=== PATIENT | female | born 1970 | race Caucasian/White ===

== ENCOUNTER 2024-03-22 16:26 | Outpatient (CLI) | payer BC, SELFPAY ==
[2024-03-22 17:18] LABS: #Basophils 0.04 10x3/uL (0.0-0.2); #Eosinphils 0.16 10x3/uL (0.0-0.5); #Monocytes 0.67 10x3/uL (0.0-1.1); #Neutrophils 5.98 10x3/uL (1.5-8.4); %Basophils 0.4 % (0.0-2.0); %Eosinophils 1.7 % (0.0-6.0); %Lymphocytes 28.2 % (18.0-47.0); Hematocrit 35.2 % (34.9-44.5); Hemoglobin 12.1 g/dL (12.0-15.5); Mean Corpuscular HGB CONC 34.4 g/dL (32.0-36.0); Mean Corpuscular Hemoglobin 28.5 pg (27.0-33.0); Mean Corpuscular Volume 82.8 fL (81.6-98.3); Mean Platelet Volume 9.7 fL (7.4-10.4); Platelet Count 258 10x3/uL (150-450); RBC Distribution Width 13.6 % (11.5-14.5); Red Blood Cell (RBC) Count 4.25 10x6/uL (3.90-5.03); White Blood Cell (WBC) Count 9.6 10x3/uL (3.5-10.5)
[2024-03-22 17:31] LABS: ALT (SGPT) 31 U/L (8-55); AST (SGOT) 26 U/L (5-34); Albumin 4.6 g/dL (3.5-5.0); Alkaline Phosphatase 79 U/L (40-110); Anion Gap 15 mmol/L (10-20); BUN (Urea Nitrogen) 29 mg/dL (9.8-20.1); Bilirubin, Total 0.3 mg/dL (0.2-1.2); Calc. Creatinine Clearance 0 mL/min (70-130); Calcium 9.8 mg/dL (7.8-10.44); Carbon Dioxide 22 mmol/L (22-29); Chloride 103 mmol/L (98-107); Estimated GFR 58; Globulin 2.6 g/dL (2.4-3.5); Glucose 108 mg/dL (70-105); Potassium 3.5 mmol/L (3.5-5.1); Protein, Total 7.2 g/dL (6.0-8.3); Sodium 136 mmol/L (136-145)
[2024-03-22 19:52] LABS: Hemoglobin A1c 6.7 % (4.0-6.0)
== END 2024-03-22 16:27 | disposition home or self-care (01) ==
LOC: LABBT 16:26
PROVIDERS: ATTEND Surgery
DX: Z01.818 Encounter for other preprocedural examination (principal)
CPT/HCPCS: 80053; 83036; 85025; 93005; 93010

== ENCOUNTER 2024-03-22 16:30 | Inpatient (IN) | payer BC, SELFPAY ==
[2024-03-22 16:36] VITALS: BMI 39.1
[2024-03-26] MEDS ORDERED: EPINEPHrine 1 MG/ML VIAL ONE (06:46)
[2024-03-26] MEDS ORDERED: Bupivacaine 0.25% HCL 30 ML VIAL ONE (06:46)
[2024-03-26] MEDS ORDERED: Lidocaine 1% PF 5 ML VIAL ONE (07:14)
[2024-03-26] MEDS ORDERED: Rocuronium Bromide 10 MG/ML (10ML VIAL) ONE (07:14)
[2024-03-26] MEDS ORDERED: Dexamethasone 4 mg/ml Vial ONE (07:14)
[2024-03-26] MEDS ORDERED: Ondansetron PF 4 MG/2 ML Vial ONE (07:14)
[2024-03-26] MEDS ORDERED: fentaNYL PF 100 MCG/2 ML SYRINGE ONE ×2 (07:14→09:08)
[2024-03-26] MEDS ORDERED: PROPOFOL 20 ML ONE (07:14)
[2024-03-26] MEDS ORDERED: CEFAZOLIN 2 GM VIAL ONE (07:23)
[2024-03-26] MEDS ORDERED: Sodium Chloride 0.9% 100 ML ONE (07:23)
[2024-03-26] MEDS ORDERED: Ketorolac Tromethamine 30 MG (1 mL) VIAL ONE (09:07)
[2024-03-26] MEDS ORDERED: SUGAMMADEX SODIUM 200 MG/2 ML VIAL ONE (09:15)
[2024-03-26] MEDS ORDERED: Ondansetron PF 4 MG/2 ML Vial IVP PRN ×2 (09:32→10:13)
[2024-03-26] MEDS ORDERED: Glucagon 1 MG/ML KIT IM PRN (09:32)
[2024-03-26] MEDS ORDERED: Dextrose 50% Abboject 50 ML SYRINGE SLOW IVP PRN (09:32)
[2024-03-26] MEDS ORDERED: Hydrocodone-Acetamin 15 ML UDCUP PO PRN (09:32)
[2024-03-26] MEDS ORDERED: diphenhydrAMINE 50 MG/ML VIAL IVP PRN ×2 (09:32→10:13)
[2024-03-26] MEDS ORDERED: hydrALAZINE 20 MG/ML VIAL SLOW IVP PRN (09:32)
[2024-03-26] MEDS ORDERED: Promethazine HCl 25 MG/ML VIAL IM PRN ×2 (09:32→10:13)
[2024-03-26] MEDS ORDERED: Dextrose 5% in Water 1,000 ML IV PRN (09:32)
[2024-03-26] MEDS ORDERED: Ipratropium/Albuterol 3 ML NEB NEB PRN (09:32)
[2024-03-26] MEDS ORDERED: fentaNYL 50 mcg/mL 1 mL Vial ONE ×3 (10:08→10:41)
[2024-03-26] MEDS ORDERED: Naloxone HCl 0.4 mg/ml Vial IV PRN (10:13)
[2024-03-26] MEDS ORDERED: diphenhydrAMINE 25 MG CAP PO PRN (10:13)
[2024-03-26] MEDS ORDERED: FENTANYL 500 MCG/10 ML VIAL 2,000 MCG in Sodium Chloride 0.9% 60 ML IV PRN (10:13)
[2024-03-26] MEDS ORDERED: diphenhydrAMINE 50 MG/ML VIAL IM PRN (10:13)
[2024-03-26] MEDS ORDERED: Communication Order-Pharmacy FS SCH (10:15)
[2024-03-26] MEDS ORDERED: D5 1/2 NS w/20 mEq KCL 1,000 ML ONE (11:50)
[2024-03-26] MEDS: D5 1/2 NS w/20 mEq KCL 1,000 ML IV SCH (13:56)
[2024-03-26] MEDS: Ketorolac Tromethamine 30 MG (1 mL) VIAL IVP SCH (15:31)
[2024-03-26] MEDS: CEFAZOLIN 2 GM in Sodium Chloride 0.9% 100 ML IVPB SCH (15:32)
[2024-03-27 05:15] LABS: #Basophils Less than 0.03 10x3/uL (0.0-0.2); %Basophils 0.1 % (0.0-1.0); %Lymphocytes 19.6 % (21.0-51.0); %Monocytes 10.4 % (0.0-10.0); %Neutrophils 68.5 % (42.0-75.0); Hematocrit 30.1 % (36.0-47.0); Hemoglobin 9.9 g/dL (12.0-16.0); Mean Corpuscular HGB CONC 32.9 g/dL (32.0-36.0); Mean Corpuscular Hemoglobin 28.5 pg (27.0-31.0); Mean Corpuscular Volume 86.7 fL (78.0-98.0); Mean Platelet Volume 9.8 fL (7.4-10.4); Platelet Count 204 10x3/uL (130-400); RBC Distribution Width 13.3 % (11.5-14.5); Red Blood Cell (RBC) Count 3.47 mill/uL (4.20-5.40)
[2024-03-27 05:33] LABS: Anion Gap 11 mmol/L (10-20); BUN (Urea Nitrogen) 13 mg/dL (9.8-20.1); Calc. Creatinine Clearance 114 mL/min (70-130); Calcium 8.3 mg/dL (7.8-10.44); Carbon Dioxide 23 mmol/L (22-29); Chloride 108 mmol/L (98-107); Estimated GFR 71; Glucose 118 mg/dL (70-105); Potassium 3.6 mmol/L (3.5-5.1); Sodium 138 mmol/L (136-145)
[2024-03-27] MEDS: Pantoprazole 40 MG VIAL IVP SCH (08:34)
[2024-03-27] MEDS: Enoxaparin 40 MG (0.4 mL) SYRINGE SC SCH (08:35)
[2024-03-27 09:13] VITALS: BP 109/72; TEMP 97.7
[2024-03-27] MEDS ORDERED: Hydrocodone-Acetamin 15 ML UDCUP PO PRN (10:22)
== END 2024-03-27 11:22 | disposition home or self-care (01) | DRG 621 ==
LOC: SURG A 03-26 05:52 → SURG B 03-26 12:27
PROVIDERS: ADMIT Surgery; ATTEND Surgery
PROC: 0D164ZA Bypass Stomach to Jejunum, Percutaneous Endoscopic Approach (ICD-10-PCS; principal; 2024-03-26)
PROC: 8E0W4CZ Robotic Assisted Procedure of Trunk Region, Percutaneous Endoscopic Approach (ICD-10-PCS; 2024-03-26)
PROC: 3E033XZ Introduction of Vasopressor into Peripheral Vein, Percutaneous Approach (ICD-10-PCS; 2024-03-26)
PROC: 5A09357 Assistance with Respiratory Ventilation, Less than 24 Consecutive Hours, Continuous Positive Airway Pressure (ICD-10-PCS; 2024-03-27)
DX: E66.01 Morbid (severe) obesity due to excess calories (principal); D64.9 Anemia, unspecified; F41.9 Anxiety disorder, unspecified; F32.A Depression, unspecified; I10 Essential (primary) hypertension; Z98.890 Other specified postprocedural states; Z90.49 Acquired absence of other specified parts of digestive tract; Z68.39 Body mass index [BMI] 39.0-39.9, adult; Z79.899 Other long term (current) drug therapy; Z82.49 Family history of ischemic heart disease and other diseases of the circulatory system; Z83.3 Family history of diabetes mellitus; Z88.8 Allergy status to other drugs, medicaments and biological substances
CPT/HCPCS: 36415; 80048; 85025; 94760; C9113; J0171; J0665; J1100; J1650; J1885; J2405; J2704; J3010; J3480; J3490

== ENCOUNTER 2024-03-30 10:19 | Day surgery (SDC) | payer OTHER ==
[2024-03-30 10:38] VITALS: BP 122/59; TEMP 97.5
[2024-03-30] MEDS: Sodium Chloride 0.9% 1,000 ML IV SCH (11:01)
[2024-03-30] MEDS: Multivitamins, Adult 10 ML, Thiamine HCl 100 MG in Sodium Chloride 0.9% 1,000 ML IV SCH (11:31)
[2024-03-30] MEDS ORDERED: Ondansetron PF 4 MG/2 ML Vial ONE (11:35)
[2024-03-30] MEDS: Ondansetron PF 4 MG/2 ML Vial IVP PRN (11:36)
== END 2024-03-30 13:29 | disposition home or self-care (01) ==
LOC: ONC/OP 10:19
PROVIDERS: ATTEND Surgery
DX: E86.0 Dehydration (principal); Z88.8 Allergy status to other drugs, medicaments and biological substances
CPT/HCPCS: 96360; 96361; J2405; J3411; J7050

== ENCOUNTER 2024-12-14 12:15 | Emergency (ER) | payer BC ==
[2024-12-14 13:01] LABS: Bilirubin Negative (Negative); Blood, Urine Negative (Negative); CAUTI Indications for Culture Pelvic or flank pain; Clarity Clear (Clear); Glucose, Urine (Dipstick) Normal (Negative); Ketone, Urine Negative (Negative); Leukocyte Negative Leu/uL (Negative); Nitrite Negative (Negative); Protein, Urine (Dipstick) Negative (Neg-Trace); RBC/HPF 0-3 HPF (0-3); Specific Gravity, Urine 1.029 (1.002-1.036); Squamous Epithelial 0-3 HPF (0-3); Urobilinogen Normal mg/dL (Less than 2); WBC/HPF 0-3 HPF (0-3); pH, Urine 5.5 (5.0-9.0)
[2024-12-14 13:02] LABS: Bacteria/HPF 1+ HPF (None Seen)
[2024-12-14 13:03] LABS: Urine Culture Reflex No No
[2024-12-14 14:05] LABS: #Basophils 0.03 10x3/uL (0.0-0.2); %Basophils 0.5 % (0.0-1.0); %Eosinophils 0.8 % (0.0-10.0); %Lymphocytes 33.3 % (21.0-51.0); %Monocytes 8.6 % (0.0-10.0); %Neutrophils 56.3 % (42.0-75.0); Hematocrit 42.2 % (36.0-47.0); Hemoglobin 14.3 g/dL (12.0-16.0); Mean Corpuscular HGB CONC 33.9 g/dL (32.0-36.0); Mean Corpuscular Hemoglobin 28.8 pg (27.0-31.0); Mean Corpuscular Volume 85.1 fL (78.0-98.0); Mean Platelet Volume 9.8 fL (7.4-10.4); Platelet Count 201 10x3/uL (130-400); RBC Distribution Width 12.6 % (11.5-14.5); Red Blood Cell (RBC) Count 4.96 mill/uL (4.20-5.40)
[2024-12-14 14:19] LABS: ALT (SGPT) 63 U/L (Less than 34); AST (SGOT) 41 U/L (11-34); Albumin 4.3 g/dL (3.1-4.5); Alkaline Phosphatase 98 U/L (40-110); Anion Gap 10 mmol/L (10-20); BUN (Urea Nitrogen) 25 mg/dL (9.8-20.1); Bilirubin, Total 0.5 mg/dL (0.3-1.2); Calc. Creatinine Clearance 0 mL/min (70-130); Calcium 9.5 mg/dL (7.8-10.44); Carbon Dioxide 25 mmol/L (22-29); Chloride 109 mmol/L (98-107); Estimated GFR 104; Globulin 2.9 g/dL (2.4-3.5); Glucose 79 mg/dL (70-105); Protein, Total 7.2 g/dL (6.0-8.3); Sodium 140 mmol/L (136-145)
[2024-12-14] MEDS ORDERED: Dicyclomine 20 MG/2 ML VIAL ONE (14:29)
[2024-12-14] MEDS ORDERED: Lactulose 20 GM (30 mL) UDCUP ONE (15:14)
== END 2024-12-14 15:33 | disposition home or self-care (01) ==
LOC: ERS 12:15
DX: K59.00 Constipation, unspecified (principal)
CPT/HCPCS: 36415; 74176; 80053; 81001; 83690; 85025; 96372